=== PATIENT | female | born 1970 ===

== ENCOUNTER 2017-12-24 12:01 | Emergency (ER) | payer OTHER ==
[2017-12-24 12:08] VITALS: BMI 42.7
--- NOTE | 2017-12-24 14:05 | C.PDOC ---
History Of Present Illness 47-year-old female, presents to the emergency department with complaints of pain to her left inguinal area for the past three days, which worsens with movement and palpation. She denies any back pain, nausea/vomiting, vaginal bleeding/discharge, dysuria, or any other associated symptoms. No other complaints at this time. Time Seen by Provider: 12/24/17 12:26 Chief Complaint (Nursing): Groin Pain History Per: Patient History/Exam Limitations: no limitations Current Symptoms Are (Timing): Still Present Severity: Moderate Past Medical History Reviewed: Historical Data, Nursing Documentation, Vital Signs Vital Signs: Last Vital Signs Temp 98.6 F 12/24/17 17:28 Pulse 53 L 12/24/17 17:28 Resp 18 12/24/17 17:28 BP 101/64 12/24/17 17:28 Pulse Ox 97 12/24/17 17:28 - Medical History PMH: HTN Surgical History: Cholecystectomy Family History: States: No Known Family Hx - Social History Hx Alcohol Use: No Hx Substance Use: No - Immunization History Hx Tetanus Toxoid Vaccination: No Hx Influenza Vaccination: No Hx Pneumococcal Vaccination: No Review Of Systems Constitutional: Negative for: Fever, Chills Gastrointestinal: Negative for: Nausea, Vomiting Genitourinary: Negative for: Dysuria, Hematuria, Vaginal Discharge, Vaginal Bleeding, Pelvic Pain Musculoskeletal: Negative for: Back Pain Neurological: Negative for: Weakness, Numbness Physical Exam - Physical Exam Appears: Non-toxic, No Acute Distress Skin: Normal Color, Warm, Dry, No Rash Head: Atraumatic, Normacephalic Eye(s): bilateral: Normal Inspection, PERRL Nose: Normal Oral Mucosa: Moist Lips: Normal Appearing Neck: Normal ROM Chest: Symmetrical Cardiovascular: Rhythm Regular, No Murmur Respiratory: Normal Breath Sounds, No Accessory Muscle Use Gastrointestinal/Abdominal: Soft, No Tenderness, No Guarding, No Rebound Extremity: Normal ROM, No Deformity, No Swelling, Other (lateral and anterior part of left hip is tender, pain reproducible with movement.) Neurological/Psych: Oriented x3, Normal Speech ED Course And Treatment O2 Sat by Pulse Oximetry: 98 (RA) Pulse Ox Interpretation: Normal - Other Rad Hip/XR X-Ray: Viewed By Me, Read By Radiologist Interpretation: Accession No. : [id number]. Patient Name / ID : SU [id number] / [id number]. Exam Date : 12/24/2017 15:17:15 ( Approved ). Study Comment : Sex / Age : F / 47Y. Creator : Angela Jennings MD. Dictator : Angela Jennings MD. Head Gauge Unit Operator : Fitter Welder : Angela Jennings MD. Approver2 : Report Date : 12/24/2017 16:04:15. My Comment : . PROCEDURE: Left Hip X- ray Radiographs. HISTORY: pain. COMPARISON: None. FINDINGS: BONES: Bone alignment and mineralization are normal. There is no acute displaced fracture or bone destruction. JOINTS: There is mild degenerative osteoarthrosis in the left hip joint with mild reduced joint space. SOFT TISSUES: Normal. OTHER FINDINGS: None. 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 No acute fracture or dislocation. Disposition - Disposition Disposition: HOME/ ROUTINE Disposition Time: 17:22 Condition: STABLE Additional Instructions: Follow up with your PMD within 1-2 days. Return to ED if feel worse. Prescriptions: Nitrofurantoin Macrocrystals [Macrobid] 1 cap PO BID #14 cap Naproxen [Naprosyn] 1 tab PO BID PRN #25 tab PRN Reason: Pain Instructions: Urinary Tract Infection, Adult (DC), Hip Pain (DC) Forms: [employer] ([place]) - Clinical Impression Clinical Impression: UTI (urinary tract infection), Hip pain - Scribe Statement The provider has reviewed the documentation as recorded by the Scribe (Dwight Morales) All medical record entries made by the Scribe were at my direction and personally dictated by me. I have reviewed the chart and agree that the record accurately reflects my personal performance of the history, physical exam, medical decision making, and the department course for this patient. I have also personally directed, reviewed, and agree with the discharge instructions and disposition.
[2017-12-24 15:13] LABS: HCG,QUALITATIVE URINE NEGATIVE (NEGATIVE)
[2017-12-24 15:19] LABS: SQUAMOUS EPITHIAL 4 /hpf (0-5); URINE BACTERIA RARE (<OCC); URINE BILIRUBIN NEGATIVE (NEGATIVE); URINE BLOOD NEGATIVE (NEGATIVE); URINE CLARITY Hazy (Clear); URINE COLOR Yellow (YELLOW); URINE GLUCOSE (UA) NORMAL (Normal); URINE LEUKOCYTE ESTERASE 1+ Leu/uL (Negative); URINE PROTEIN NEGATIVE (NEGATIVE); URINE UROBILINOGEN NORMAL mg/dL (0.2-1.0)
--- NOTE | 2017-12-24 16:05 | RAD ---
PROCEDURE: Left Hip X-ray Radiographs. HISTORY: pain COMPARISON: None. FINDINGS: BONES: Bone alignment and mineralization are normal. There is no acute displaced fracture or bone destruction. JOINTS: There is mild degenerative osteoarthrosis in the left hip joint with mild reduced joint space. SOFT TISSUES: Normal. OTHER FINDINGS: None. 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 No acute fracture or dislocation.
[2017-12-24 17:29] VITALS: BP 101/64; PULSE 53; RESP 18; TEMP 98.6
[2017-12-24 17:54] VITALS: O2SAT 98
== END 2017-12-24 17:31 | disposition home or self-care (01) ==
LOC: C.ER 12:01
DX: N39.0 Urinary tract infection, site not specified (principal); M25.552 Pain in left hip
CPT/HCPCS: 73502; 81001; 84703; 96372; 99283; J1885

== ENCOUNTER 2018-12-07 10:15 | Outpatient (CLI) | payer OTHER | END 2018-12-07 10:16 | disposition home or self-care (01) | LOC: C.RADH 10:15 | DX: J20.9 Acute bronchitis, unspecified (principal) ==